=== PATIENT | male | born 2000 | race Hispanic/Latino ===

== ENCOUNTER 2023-04-04 19:10 | Emergency (ER) | payer OTHER ==
[~2023-04-04] VITALS: Ht 167.6 cm; Wt 108.0 kg
[2023-04-04 19:15] VITALS: BP 158/82; PULSE 92; RESP 18
[2023-04-04] MEDS ORDERED: CEPH500B PO (19:46)
== END 2023-04-04 19:54 | disposition home or self-care (01) ==
LOC: EDH 19:10
DX: S61.412A Laceration without foreign body of left hand, initial encounter (principal); I10 Essential (primary) hypertension